=== PATIENT | female | born 2000 | race Caucasian/White ===

== ENCOUNTER 2019-07-02 23:59 | Emergency (ER) | payer BC, OTHER ==
[~2019-07-02] VITALS: Ht 167.6 cm; Wt 117.9 kg
[2019-07-03] MEDS ORDERED: PRENATAL TABLE1 EAC2 PO (00:13)
[2019-07-03] MEDS ORDERED: LEVOTHYROXINE PO (00:14)
[2019-07-03 00:40] LABS: BASOPHILS ABSOLUTE AUTO 0.02 K/mm3 (0.00-0.23); BASOPHILS PERCENT AUTO 0 % (0-2); EOSINOPHILS ABSOLUTE AUTO 0.07 K/mm3 (0.00-0.68); EOSINOPHILS PERCENT AUTO 1 % (0-6); Hematocrit 37.1 % (33.0-51.0); Hemoglobin 11.9 g/dL (11.5-16.0); IMMATURE GRAN ABSOLUTE AUTO 0.03 K/mm3 (0.00-0.10); IMMATURE GRAN PERCENT AUTO 0 % (0-1); LYMPHOCYTES PERCENT AUTO 16 % (21-46); MONOCYTES ABSOLUTE AUTO 0.88 K/mm3 (0.16-1.47); MONOCYTES PERCENT AUTO 7 % (4-13); Mean Corpuscular HGB 27.6 pg (26.0-34.0); Mean Corpuscular HGB Conc 32.1 g/dL (31.5-36.5); Mean Corpuscular Volume 86 fL (80-100); Mean Platelet Volume 10.5 fL (9.1-12.4); NEUTROPHILS PERCENT AUTO 76 % (41-73); Platelet Count 276 K/mm3 (150-400); RDW Coefficient Variation 14.2 % (11.7-14.2); RDW Standard Deviation 44.6 fL (35.1-46.3); Red Blood Cell Count 4.31 M/mm3 (3.80-5.20)
[2019-07-03 01:01] LABS: Alanine Aminotransfer (ALT/SGP 29 U/L (12-78); Albumin, Blood 2.5 g/dL (3.4-5.0); Albumin/Globulin Ratio 0.6 (0.8-1.8); Alk Phos 88 U/L (50-136); Anion Gap 7 mmol/L (6-16); Aspartate Aminotrans (AST/SGOT 13 U/L (12-37); Bilirubin, Total 0.1 mg/dL (0.1-1.0); Blood Urea Nitrogen 9 mg/dL (8-24); Bun/Creatinine Ratio 16.7 (12.0-20.0); CO2, Blood 21 mmol/L (21-32); Calcium, Blood 8.9 mg/dL (8.5-10.1); Chloride, Blood 110 mmol/L (98-108); Creatinine, Blood 0.54 mg/dL (0.40-1.00); Free Thyroxine 0.93 ng/dL (0.70-1.60); Globulin, Blood 4.1 g/dL (2.2-4.0); Glomerular Filtration Rate >60 (60-); Glucose, Blood 108 mg/dL (70-99); Potassium, Blood 3.8 mmol/L (3.5-5.5); Sodium, Blood 138 mmol/L (136-145); Total Protein, Blood 6.6 g/dL (6.4-8.2)
[2019-07-03 02:59] LABS: Source, Urine Clean Catch
[2019-07-03 03:01] LABS: Appearance, Urine Clear (Clear); Bilirubin, Urine Neg (Neg); Blood, Urine Neg (Neg); Color, Urine Yellow (P-Yellow); Glucose Qualitative, Urine Neg (Neg); Ketones, Urine Neg (Neg); Leukocyte Esterase, Urine Neg (Neg); Nitrite, Urine Neg (Neg); Protein, Urine Neg (Neg); Specific Gravity, Urine 1.025 (1.003-1.022); Urobilinogen, Urine NORM (Normal)
== END 2019-07-03 03:06 | disposition home or self-care (01) ==
LOC: ER 23:59
PROVIDERS: Physician Assistant
DX: O99.89 Other specified diseases and conditions complicating pregnancy, childbirth and the puerperium (principal); R07.9 Chest pain, unspecified; Z3A.36 36 weeks gestation of pregnancy
CPT/HCPCS: 80053; 81003; 84439; 84443; 85025; 93005; 93010

== ENCOUNTER 2019-08-01 15:57 | Inpatient (IN) | payer BC, OTHER ==
[~2019-08-01] VITALS: Ht 167.6 cm; Wt 122.7 kg
[~2019-08-01 15:57] MED LIST: LEVOTHYROXINE PO; PRENATAL TABLE1 EAC2 PO
[2019-08-01] MEDS ORDERED: ZYRTEC10 M2 PO (16:44)
[2019-08-01 16:48] LABS: BASOPHILS ABSOLUTE AUTO 0.01 K/mm3 (0.00-0.23); BASOPHILS PERCENT AUTO 0 % (0-2); EOSINOPHILS ABSOLUTE AUTO 0.06 K/mm3 (0.00-0.68); EOSINOPHILS PERCENT AUTO 1 % (0-6); Hematocrit 38.2 % (33.0-51.0); Hemoglobin 12.1 g/dL (11.5-16.0); IMMATURE GRAN ABSOLUTE AUTO 0.04 K/mm3 (0.00-0.10); IMMATURE GRAN PERCENT AUTO 0 % (0-1); LYMPHOCYTES PERCENT AUTO 16 % (21-46); MONOCYTES ABSOLUTE AUTO 0.92 K/mm3 (0.16-1.47); MONOCYTES PERCENT AUTO 9 % (4-13); Mean Corpuscular HGB Conc 31.7 g/dL (31.5-36.5); Mean Corpuscular Volume 85 fL (80-100); Mean Platelet Volume 10.6 fL (9.1-12.4); NEUTROPHILS ABSOLUTE AUTO 7.85 K/mm3 (1.96-9.15); NEUTROPHILS PERCENT AUTO 74 % (41-73); Platelet Count 290 K/mm3 (150-400); RDW Coefficient Variation 14.4 % (11.7-14.2); Red Blood Cell Count 4.48 M/mm3 (3.80-5.20); White Blood Cell Count 10.58 K/mm3 (4.00-11.30)
--- NOTE | 2019-08-02 20:10 | NUR ---
[facility] PT CARE, PT HAVING VARIABLES. JOE CARE DONE. DISCUSSED PLAN OF CARE. PT'S SO AT SIDE, SUPPORTIVE.
[2019-08-03 00:26] LABS: PCO2 Cord - Arterial 65 mmHg (40-50); PO2 Cord - Arterial 20.8 mmHg (16-20); pH Cord - Arterial 7.16 (7.28-7.35)
[2019-08-03 00:27] LABS: PCO2 Cord - Venous 45.2 mmHg (40-50); PO2 Cord - Venous 35.2 mmHg (28-32); pH Umbilical Cord - Venous 7.27 (7.26-7.35)
--- NOTE | 2019-08-03 03:19 | NUR ---
PT STATES LEGS STILL HEAVY, WILL RECHECK IN 30 MIN FOR SHOWER.
--- NOTE | 2019-08-03 04:45 | NUR ---
PT FINALLY FEELING UP TO SHOWERING. WALKED INDEP, CARINE WELL, SHOWERED. LINEN CHANGED, GOWN CHANGED. PT DOING INDEPT SELF CARE. SHOWN HOW TO USE JOE BOTTLE AND JOE MEDS. PT BACK TO BED, VSS. REQUESTS TO SLEEP.
--- NOTE | 2019-08-03 07:15 | NUR ---
REPORT TO RHINA DOYLE. NO ACUTE CHANGES.
[2019-08-03] MEDS ORDERED: IBU800 MG PO (12:26)
[2019-08-04 06:09] LABS: Hematocrit 29.8 % (33.0-51.0); Hemoglobin 9.3 g/dL (11.5-16.0); Mean Corpuscular HGB 26.9 pg (26.0-34.0); Mean Corpuscular HGB Conc 31.2 g/dL (31.5-36.5); Mean Corpuscular Volume 86 fL (80-100); Mean Platelet Volume 10.5 fL (9.1-12.4); Platelet Count 200 K/mm3 (150-400); RDW Coefficient Variation 14.8 % (11.7-14.2); Red Blood Cell Count 3.46 M/mm3 (3.80-5.20); White Blood Cell Count 9.86 K/mm3 (4.00-11.30)
== END 2019-08-04 12:28 | disposition home or self-care (01) | DRG 807 ==
LOC: OBS 15:57 → BC 16:02
PROVIDERS: ADMIT Advanced Practice Midwife
PROC: 10D07Z6 Extraction of Products of Conception, Vacuum, Via Natural or Artificial Opening (ICD-10-PCS; principal; 2019-08-04)
PROC: 10907ZC Drainage of Amniotic Fluid, Therapeutic from Products of Conception, Via Natural or Artificial Opening (ICD-10-PCS; 2019-08-04)
PROC: 10H07YZ Insertion of Other Device into Products of Conception, Via Natural or Artificial Opening (ICD-10-PCS; 2019-08-04)
PROC: 6A550ZT Pheresis of Cord Blood Stem Cells, Single (ICD-10-PCS; 2019-08-04)
PROC: 0W8NXZZ Division of Female Perineum, External Approach (ICD-10-PCS; 2019-08-04)
PROC: 3E033VJ Introduction of Other Hormone into Peripheral Vein, Percutaneous Approach (ICD-10-PCS; 2019-08-04)
DX: O99.283 Endocrine, nutritional and metabolic diseases complicating pregnancy, third trimester (principal); Z37.0 Single live birth; O48.0 Post-term pregnancy; Z3A.40 40 weeks gestation of pregnancy; O76 Abnormality in fetal heart rate and rhythm complicating labor and delivery
CPT/HCPCS: 36415; 51702; 82803; 85025; 85027; 86850; 86900; 86901; A9270; A9270-GY; J1885; J2001; J2405; J2590; J3010; J7120

== ENCOUNTER 2020-06-15 11:06 | Emergency (ER) | payer BC, OTHER ==
[~2020-06-15] VITALS: Ht 167.6 cm; Wt 102.1 kg
[~2020-06-15 11:06] MED LIST changes: +IBU800 MG PO; +ZYRTEC10 M2 PO
[2020-06-15] MEDS ORDERED: IBUP400 PO (12:45)
[2020-06-15] MEDS ORDERED: Cephalexin500 MG PO (12:45)
== END 2020-06-15 13:26 | disposition home or self-care (01) ==
LOC: ER 11:06
DX: R51.9 Headache, unspecified (principal); R59.1 Generalized enlarged lymph nodes; Z79.899 Other long term (current) drug therapy
CPT/HCPCS: 70450; 96374; 96375; 99284-25; J1200; J1885; J2765; J7030

== ENCOUNTER → 2021-06-05 | Outpatient (CLI) | payer BC, OTHER ==
[~2021-06-05] MED LIST changes: +Cephalexin500 MG PO; +IBUP400 PO
[2021-06-05 17:41] LABS: U Amphetamine Screen Not Detected; U Barbituate Screen Not Detected; U Benzodiazapine Screen Not Detected; U Buprenorphine Screen Not Detected; U Cannabinoids Screen DETECTED; U Cocaine Screen Not Detected; U Methadone Screen Not Detected; U Methamphetamine Screen Not Detected; U Opiates Screen Not Detected; U Oxycodone Screen Not Detected; U Phencyclidine Screen Not Detected; U Propoxyphene Screen Not Detected
== END ==
LOC: LAB SHORT 16:05
PROVIDERS: Physician Assistant
DX: Z79.899 Other long term (current) drug therapy (principal)

== ENCOUNTER 2022-02-16 19:48 | Inpatient (IN) | payer BC, OTHER ==
[~2022-02-16] VITALS: Ht 167.6 cm; Wt 118.0 kg
[2022-02-16] MEDS ORDERED: OMEP20ER PO (21:08)
[2022-02-16] MEDS ORDERED: BUPR150ER PO (21:08)
[2022-02-16 21:49] LABS: BASOPHILS ABSOLUTE AUTO 0.03 K/mm3 (0.00-0.23); BASOPHILS PERCENT AUTO 0 % (0-2); EOSINOPHILS ABSOLUTE AUTO 0.05 K/mm3 (0.00-0.68); EOSINOPHILS PERCENT AUTO 1 % (0-6); Hematocrit 38.7 % (33.0-51.0); IMMATURE GRAN ABSOLUTE AUTO 0.03 K/mm3 (0.00-0.10); IMMATURE GRAN PERCENT AUTO 0 % (0-1); LYMPHOCYTES ABSOLUTE AUTO 2.11 K/mm3 (0.84-5.20); LYMPHOCYTES PERCENT AUTO 21 % (21-46); MONOCYTES ABSOLUTE AUTO 0.56 K/mm3 (0.16-1.47); MONOCYTES PERCENT AUTO 6 % (4-13); Mean Corpuscular HGB 28.7 pg (26.0-34.0); Mean Corpuscular HGB Conc 33.6 g/dL (31.5-36.5); Mean Corpuscular Volume 85 fL (80-100); Mean Platelet Volume 10.6 fL (9.1-12.4); NEUTROPHILS ABSOLUTE AUTO 7.28 K/mm3 (1.96-9.15); NEUTROPHILS PERCENT AUTO 72 % (41-73); Platelet Count 241 K/mm3 (150-400); RDW Coefficient Variation 14.6 % (11.7-14.2); RDW Standard Deviation 44.9 fL (35.1-46.3); Red Blood Cell Count 4.53 M/mm3 (3.80-5.20); White Blood Cell Count 10.06 K/mm3 (4.00-11.30)
--- NOTE | 2022-02-17 16:15 | NUR ---
was called to pt room, she was in a chair at the bedside, i nicely laughed at pt trying to figure out why in chair, pt reports was tyring to get sitat bedside so could eat pizza and made it sound like her leg fell off the bed and she flopped in the chair, but then after talking with pt for a few mintues, she reports was trying to scoot to the bedside to eat and her leg fell off the bed and she landed on the floor on her hands. she was able to stand up wobbly and her mom moved the chiar under her, she was made aware that she couldnt get out of bed yet due to legs being numb. she denies any injuries or problems, no redness to her hands or anywhere else.
--- NOTE | 2022-02-17 18:15 | NUR ---
up to shower, void in toilet, instructed how to use willis bottle. took 20 minutes for water to heat up for pt to be able to shower pt denies any numbness or tinglingin legs. was able to stand with out legs buckling. pt has no reddness or bruising to hands arms or legs at this time, pt reports she reports she is fine, and has no problems from falling
[2022-02-18 05:40] LABS: Hematocrit 37.5 % (33.0-51.0); Hemoglobin 12.4 g/dL (11.5-16.0); Mean Corpuscular HGB 28.4 pg (26.0-34.0); Mean Corpuscular HGB Conc 33.1 g/dL (31.5-36.5); Mean Corpuscular Volume 86 fL (80-100); Mean Platelet Volume 10.6 fL (9.1-12.4); Platelet Count 213 K/mm3 (150-400); RDW Coefficient Variation 14.6 % (11.7-14.2); RDW Standard Deviation 44.9 fL (35.1-46.3); Red Blood Cell Count 4.37 M/mm3 (3.80-5.20); White Blood Cell Count 10.52 K/mm3 (4.00-11.30)
[2022-02-18] MEDS ORDERED: IBUP800 PO (11:52)
--- NOTE | 2022-02-18 14:20 | NUR ---
DISCHARGE ASSUMED CARE. VSS. AFEBRILE. NO COMPLAINTS AND READY TO GO HOME. BANDS MATCHED AND PT VERBALIZES UNDERSTANDING OF DISCHARGE INSTRUCTIONS AND FOLLOW UP APPOINTMENTS. DC HOME STABLE.
== END 2022-02-18 14:20 | disposition home or self-care (01) | DRG 807 ==
LOC: OBS 19:48 → BC 19:52 → OBS 19:57 → BC 20:01
PROVIDERS: ADMIT Advanced Practice Midwife
PROC: 10E0XZZ Delivery of Products of Conception, External Approach (ICD-10-PCS; principal; 2022-02-17)
PROC: 3E0R3BZ Introduction of Anesthetic Agent into Spinal Canal, Percutaneous Approach (ICD-10-PCS; 2022-02-17)
PROC: 00HU33Z Insertion of Infusion Device into Spinal Canal, Percutaneous Approach (ICD-10-PCS; 2022-02-17)
PROC: 3E033VJ Introduction of Other Hormone into Peripheral Vein, Percutaneous Approach (ICD-10-PCS; 2022-02-17)
PROC: 10907ZC Drainage of Amniotic Fluid, Therapeutic from Products of Conception, Via Natural or Artificial Opening (ICD-10-PCS; 2022-02-17)
DX: O48.0 Post-term pregnancy (principal); Z37.0 Single live birth; O99.824 Streptococcus B carrier state complicating childbirth; O43.123 Velamentous insertion of umbilical cord, third trimester; O70.0 First degree perineal laceration during delivery; Z91.030 Bee allergy status; Z91.038 Other insect allergy status; Z3A.40 40 weeks gestation of pregnancy; Z91.018 Allergy to other foods
CPT/HCPCS: 36415; 85025; 85027; 86850; 86900; 86901; A9270; J0290; J1885; J2210; J2590; J7120

== ENCOUNTER → 2022-09-17 | Outpatient (CLI) | payer BC, OTHER ==
[~2022-09-17] MED LIST changes: +BUPR150ER PO; +IBUP800 PO; +OMEP20ER PO
[2022-09-17 18:21] LABS: U Amphetamine Screen Not Detected; U Barbituate Screen Not Detected; U Benzodiazapine Screen Not Detected; U Buprenorphine Screen Not Detected; U Cannabinoids Screen Not Detected; U Cocaine Screen Not Detected; U Methadone Screen Not Detected; U Methamphetamine Screen Not Detected; U Opiates Screen Not Detected; U Oxycodone Screen Not Detected; U Phencyclidine Screen Not Detected; U Propoxyphene Screen Not Detected
== END | disposition home or self-care (01) ==
LOC: LAB SHORT 16:15 → LAB 16:15
PROVIDERS: Physician Assistant
DX: Z51.81 Encounter for therapeutic drug level monitoring (principal); Z79.899 Other long term (current) drug therapy

== ENCOUNTER → 2024-04-16 | Outpatient (CLI) | payer BC, OTHER ==
[2024-04-17 16:38] LABS: U Amphetamine Screen Not Detected; U Barbituate Screen Not Detected; U Benzodiazapine Screen Not Detected; U Buprenorphine Screen Not Detected; U Cannabinoids Screen Not Detected; U Cocaine Screen Not Detected; U Methadone Screen Not Detected; U Methamphetamine Screen Not Detected; U Opiates Screen Not Detected; U Oxycodone Screen Not Detected; U Phencyclidine Screen Not Detected
== END ==
LOC: LAB 16:30 → LAB SHORT 16:30
PROVIDERS: Physician Assistant
DX: Z79.891 Long term (current) use of opiate analgesic (principal)

== ENCOUNTER 2024-07-05 13:49 | Observation (INO) | payer OTHER, BC ==
[~2024-07-05] VITALS: Ht 167.6 cm; Wt 123.4 kg
[2024-07-05 14:19] LABS: BASOPHILS ABSOLUTE AUTO 0.05 K/mm3 (0.00-0.23); BASOPHILS PERCENT AUTO 1 % (0-2); EOSINOPHILS ABSOLUTE AUTO 0.11 K/mm3 (0.00-0.68); EOSINOPHILS PERCENT AUTO 1 % (0-6); Hematocrit 41.3 % (33.0-51.0); Hemoglobin 13.8 g/dL (11.5-16.0); IMMATURE GRAN ABSOLUTE AUTO 0.03 K/mm3 (0.00-0.10); IMMATURE GRAN PERCENT AUTO 0 % (0-1); LYMPHOCYTES ABSOLUTE AUTO 2.13 K/mm3 (0.84-5.20); LYMPHOCYTES PERCENT AUTO 19 % (21-46); MONOCYTES ABSOLUTE AUTO 0.69 K/mm3 (0.16-1.47); MONOCYTES PERCENT AUTO 6 % (4-13); Mean Corpuscular HGB 28.1 pg (26.0-34.0); Mean Corpuscular HGB Conc 33.4 g/dL (31.5-36.5); Mean Corpuscular Volume 84 fL (80-100); Mean Platelet Volume 9.8 fL (9.1-12.4); NEUTROPHILS ABSOLUTE AUTO 8.04 K/mm3 (1.96-9.15); NEUTROPHILS PERCENT AUTO 73 % (41-73); Platelet Count 313 K/mm3 (150-400); RDW Coefficient Variation 13.7 % (11.7-14.2); RDW Standard Deviation 42.2 fL (35.1-46.3); Red Blood Cell Count 4.91 M/mm3 (3.80-5.20); White Blood Cell Count 11.05 K/mm3 (4.00-11.30)
[2024-07-05 15:08] LABS: Alanine Aminotransfer (ALT/SGP 185 U/L (12-78); Albumin, Blood 3.6 g/dL (3.4-5.0); Alk Phos 86 U/L (50-136); Anion Gap 9 mmol/L (3-11); Aspartate Aminotrans (AST/SGOT 130 U/L (12-37); Bilirubin, Total 0.6 mg/dL (0.1-1.0); Blood Urea Nitrogen 13 mg/dL (8-24); Bun/Creatinine Ratio 14.1 (12.0-20.0); CO2, Blood 26 mmol/L (21-32); Calcium, Blood 9.3 mg/dL (8.5-10.1); Chloride, Blood 106 mmol/L (98-108); Creatinine, Blood 0.93 mg/dL (0.40-1.00); Globulin, Blood 3.6 g/dL (2.2-4.0); Glomerular Filtration Rate 87 (60-); Glucose, Blood 98 mg/dL (70-99); Potassium, Blood 3.8 mmol/L (3.5-5.5); Sodium, Blood 137 mmol/L (136-145); Total Protein, Blood 7.2 g/dL (6.4-8.2)
[2024-07-05 15:25] LABS: Source, Urine Clean Catch
[2024-07-05 15:53] LABS: Appearance, Urine Hazy (Clear); Bilirubin, Urine Neg (Neg); Blood, Urine Neg (Neg); Color, Urine Yellow (P-Yellow); Glucose Qualitative, Urine Neg (Neg); Ketones, Urine Neg (Neg); Leukocyte Esterase, Urine Neg (Neg); Nitrite, Urine Neg (Neg); Protein, Urine 1+ (Neg); Specific Gravity, Urine 1.015 (1.003-1.022); Urobilinogen, Urine 1+ (Normal)
[2024-07-05 15:58] LABS: Amorphous Mod (0-Heavy); Bacteria Few /hpf; Red Blood Cells, Urine Not Seen /hpf (0-2); Squamous Epithelial Cells Few /hpf (Few); White Blood Cells, Urine 0-2 /hpf (0-5)
[2024-07-05 18:06] LABS: Triglycerides 126 mg/dL (30-140)
[2024-07-05] MEDS ORDERED: Acetaminophen 325 MG TABLET PO PRN (19:00)
[2024-07-05] MEDS ORDERED: Ondansetron HCl 2 MG / ML 2ML Vial IV PRN (19:00)
[2024-07-05] MEDS ORDERED: Lactated Ringer's 1,000 ML IV SCH (19:00)
[2024-07-05] MEDS ORDERED: FLU VACC TS2024-25(6MOS UP)/PF 45 MCG/0.5 ML SYRINGE IM ONE (19:05)
[2024-07-05] MEDS ORDERED: OxyCODONE HCL 5 MG TAB PO PRN (19:05)
[2024-07-05] MEDS ORDERED: HYDROmorphone HCl 0.5 MG/0.5 ML SYR IV PRN (19:05)
[2024-07-05] MEDS ORDERED: Ketorolac Tromethamine 15mg Vial IV PRN (19:35)
[2024-07-05] MEDS ORDERED: Lactated Ringer's 1,000 ML IV ONE (19:46)
[2024-07-05 21:07] VITALS: BP 125/59
--- NOTE | 2024-07-05 21:47 | NUR ---
PATIENT IS A NEW ADMIT FROM THE ED. ALERT, ORIENTED, AND INDEPENDENT. DENIES CHEST PAIN, SOB, AND N/V. NO ABDOMEN PAIN REPORTED. ON ROOM AIR. NPO. LR RESTARTED FROM THE ED AT 100mL/HR. ORIENTED TO ROOM AND CALL LIGHT SYSTEM. REPORTS NO TV AFTER ASSESSMENT. LIVES WITH HER TWO SONS IN AN APARTMENT LOCALLY. WCTM.
[2024-07-06] VITALS (19 sets, daily range): BP systolic 99–154; BP diastolic 54–94
--- NOTE | 2024-07-06 04:18 | NUR ---
SHIFT SUMMARY PATIENT HAD NO ACUTE CHANGES. AXOX 4 AND INDEPENDENT. NPO. DENIES CHEST PAIN, SOB, AND N/V. VSS/AFEBRILE. NO ABDOMEN PAIN REPORTED. PIV INTACT. LR INFUSING @ 100 mL/HR. CALL LIGHT IN REACH. BED IN LOWEST POSITION. WILL CONTINUE TO MONITOR UNTIL DAY SHIFT NURSE ASSUMES CARE
[2024-07-06 06:19] LABS: Hematocrit 42.3 % (33.0-51.0); Hemoglobin 13.5 g/dL (11.5-16.0); Mean Corpuscular HGB 27.7 pg (26.0-34.0); Mean Corpuscular HGB Conc 31.9 g/dL (31.5-36.5); Mean Corpuscular Volume 87 fL (80-100); Mean Platelet Volume 10.1 fL (9.1-12.4); Platelet Count 263 K/mm3 (150-400); RDW Coefficient Variation 13.9 % (11.7-14.2); RDW Standard Deviation 43.8 fL (35.1-46.3); Red Blood Cell Count 4.88 M/mm3 (3.80-5.20); White Blood Cell Count 6.91 K/mm3 (4.00-11.30)
[2024-07-06 06:50] LABS: Magnesium, Blood 2.3 mg/dL (1.6-2.4)
[2024-07-06 06:52] LABS: Albumin, Blood 3.2 g/dL (3.4-5.0); Albumin/Globulin Ratio 0.9 (0.8-1.8); Bilirubin, Total 0.7 mg/dL (0.1-1.0); Bun/Creatinine Ratio 11.3 (12.0-20.0); Calcium, Blood 8.8 mg/dL (8.5-10.1); Creatinine, Blood 0.89 mg/dL (0.40-1.00); Globulin, Blood 3.4 g/dL (2.2-4.0); Total Protein, Blood 6.6 g/dL (6.4-8.2)
[2024-07-06] MEDS ORDERED: Lactated Ringer's 1,000 ML IV SCH (08:50)
[2024-07-06] MEDS ORDERED: propofoL 20 ML IV ONE (08:56)
[2024-07-06] MEDS ORDERED: FentaNYL Citrate 50 MCG/ML 2 ML Injection ONE ×2 (08:57→12:07)
[2024-07-06] MEDS ORDERED: Rocuronium Bromide 10 MG/ML 5ML Injection IV ONE ×3 (08:57→10:25)
[2024-07-06] MEDS ORDERED: Bupivacaine 0.5% HCl 5 MG/ML 30MLVIAL ONE ×2 (09:14→11:04)
--- NOTE | 2024-07-06 09:24 | NUR ---
PT TO UNIT VIA W/C. ABLE TO TRANSFER INDEPENDENTLY TO [facility]. History, Chart, Medications and Allergies reviewed before start of procedure. Pre-Op teaching done. Pt verbalizes understanding. Patient confirms NPO status and agrees with scheduled surgery. MOM AT BEDSIDE IN DAY SURGERY. ALL BELONGINGS LEFT IN PT'S MEDICAL FLOOR ROOM.
[2024-07-06] MEDS ORDERED: Midazolam HCl 1MG / ML 2ML Vial ONE (09:41)
[2024-07-06] MEDS ORDERED: Midazolam HCl 1MG / ML 2ML Vial IV ONE (09:45)
[2024-07-06] MEDS ORDERED: Lidocaine HCl 4% 5 ML SDA ONE (09:45)
[2024-07-06] MEDS ORDERED: Ketorolac Tromethamine 30mg Vial ONE (09:54)
[2024-07-06] MEDS ORDERED: Sugammadex Sodium 200 MG/2ML SDV (100 MG/ML) ONE (09:54)
[2024-07-06] MEDS ORDERED: Dexamethasone Sod Phos 10 MG/ML 1ML VIAL ONE (10:17)
[2024-07-06] MEDS ORDERED: Ondansetron HCl 2 MG / ML 2ML Vial ONE ×2 (10:17→11:50)
[2024-07-06] MEDS ORDERED: HYDROcodone 5-APAP 325 TAB PO PRN (11:15)
--- NOTE | 2024-07-06 11:34 | NUR ---
PT HEADED TO PROCEDURE BEGINING OF SHIFT WITH DR KWON. REPORT WAS GIVEN TO RECIEVING RN AND AISHA TAKEN TO ROOM 209. PT WAS PLEASANT AND COOPERATIVE ABLE TO AMBULATE INDEPENDENTLY AND MAKE NEEDS KNOWN.
[2024-07-06] MEDS ORDERED: Metoclopramide HCl 5MG / ML 2ML Vial ONE (11:57)
[2024-07-06] MEDS ORDERED: ACET325 PO (12:17)
[2024-07-06] MEDS ORDERED: HYDR1TAB94 PO (12:18)
--- NOTE | 2024-07-06 13:26 | NUR ---
POST-OP PATIENT TO ROOM @1230 VITALS STABLE, TOLERATING PO INTAKE AND DENIES NAUSEA. 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 MEDICATED WITH NORCO, TOLERATED WELL.PATIENT IS VISITING WITH FAMILY. CALL LIGHT IN REACH.
[2024-07-06] MEDS ORDERED: Simethicone 80 MG Chew PO ONE (13:45)
--- NOTE | 2024-07-06 14:13 | NUR ---
DISCHARGE PATIENT TOELRATING PO INTAKE, TOLERATING PAIN MEDICATION, VOIDING AND WALKING IN ROOM. VITAL SIGNS STABLE. DC INSTRUCTIONS READ AND SIGNED UNDERSTANDING. PRESCRIPTIONS PICKED UP PRIOR TO SURGERY. ALL BELONGINGS TAKEN WITH PATIENT AND MOTHER. PATIENT WALKS OUT ON HER OWN.
== END 2024-07-06 14:15 | disposition home or self-care (01) ==
LOC: ER 13:49 → MEDS 13:50 → SURS 07-06 12:27
PROVIDERS: Physician Assistant; Student in an Organized Health Care Education/Training Program; ADMIT Surgery
PROC: 0FT44ZZ Resection of Gallbladder, Percutaneous Endoscopic Approach (ICD-10-PCS; principal; 2024-07-06 09:30)
PROC: BF03YZZ Plain Radiography of Gallbladder and Bile Ducts using Other Contrast (ICD-10-PCS; principal; 2024-07-06 09:30)
DX: K80.10 Calculus of gallbladder with chronic cholecystitis without obstruction (principal); K85.10 Biliary acute pancreatitis without necrosis or infection; F90.9 Attention-deficit hyperactivity disorder, unspecified type; K76.0 Fatty (change of) liver, not elsewhere classified; F17.290 Nicotine dependence, other tobacco product, uncomplicated; E66.9 Obesity, unspecified; Z68.41 Body mass index [BMI] 40.0-44.9, adult; Z91.018 Allergy to other foods; Z91.038 Other insect allergy status; Z79.899 Other long term (current) drug therapy
CPT/HCPCS: 36415; 74177; 74300; 76705; 80053; 81001; 81025; 83690; 83735; 84478; 85025; 85027; 88304; 96374-59; 99285-25; A9270; C1729; G0378; J1100; J1885; J2003; J2250; J2405; J2704; J2765; J3010; J7120; Q9967